=== PATIENT | female | born 1950 | race Two or more races ===

== ENCOUNTER → 2019-07-30 | Outpatient (CLI) | payer MEDICARE ==
--- NOTE | 2019-07-31 08:16 | Diagnostic Imaging Report ---
Exam: Bone mineral density study. History: Osseous process screening Comparison: None Discussion: Evaluation of the left hip and lumbar spine was performed . The study is technically adequate. The patient's fracture risk is compared to an age-matched control. The patient denies prior surgery/fracture of the spine, hips or forearm. Left hip femoral neck bone mineral density: 0.751 g/cm2, T-score is -0.9, Z-score is 0.8. Left hip total bone mineral density: 0.967 g/cm2, T-score is 0.2, Z-score is 1.6. Lumbar spine total bone mineral density: 0.904 gm/cm2, T-score is -1.3, Z-score is 0.7. Impression: 1. Bone mineralization by WHO Classification of the left hip is normal, the fracture risk is not increased. 2. Bone mineralization by WHO Classification of the lumbar spine is osteopenia, the fracture risk is moderate. Recommendations: Medical evaluation for secondary causes of low bone mineral density may be appropriate. Correlate clinically for the necessity and timing of the next bone mineral density study. Signed by: Dr. Gume Chaidez MD on 07/31/2019 8:12 AM
== END ==
LOC: DX 13:25
PROVIDERS: ATTEND Internal Medicine
DX: M81.0 Age-related osteoporosis without current pathological fracture (principal)
CPT/HCPCS: 77080